=== PATIENT | male | born 1960 | race Caucasian/White ===

== ENCOUNTER 2021-10-04 06:59 | Outpatient (CLI) | payer BC, SELFPAY ==
--- NOTE | ~2021-10-04 | MR_ITS ---
EXAMINATION: MR lumbar spine wo con DATE: 10/04/2021 07:29 INDICATION: Low back pain. Right-sided sciatica. TECHNIQUE: Magnetic resonance imaging (MRI) of the lumbar spine was performed without intravenous con trast. Sequences included sagittal T2-weighted FSE, sagittal T2-weighted FS FSE, sagittal T1-weighted FSE, and axial T2-weighted FSE. COMPARISON: None FINDINGS: There is 3 mm retrolisthesis of L1 on L2. S1 is a transitional segment. Vertebral body heig hts are normal. There is moderately decreased disc height at T12-L1, L1-L2, an L4-L5. The distal spin al cord signal intensity is normal. The conus medullaris is at L1-L2. The following disc levels are s pecifically discussed: L1-L2: The disc is bulging and has an annular fissure. There is mild bilateral facet joint osteoarthr itis. There is moderate right and mild left neural foraminal stenosis. There is mild central canal st enosis. L2-L3: The disc does not extend beyond the endplate margin. There is mild bilateral facet joint osteo arthritis. There is no neural foraminal stenosis. There is no central canal stenosis. L3-L4: The disc is bulging. There is mild bilateral facet joint osteoarthritis. There is mild bilater al neural foraminal stenosis. There is mild central canal stenosis. L4-L5: The disc is bulging. There is mild bilateral facet joint osteoarthritis. There is mild bilater al neural foraminal stenosis. There is mild central canal stenosis. L5-S1: The disc is bulging and has an annular fissure. There is severe bilateral facet joint osteoart hritis. There is mild bilateral neural foraminal stenosis. There is mild central canal stenosis. IMPRESSION: 1. Moderate lumbar spondylosis. Reviewed, dictated and finalized at location A.
== END 2021-10-04 07:00 ==
PROVIDERS: PCP Internal Medicine; Visit Provider Orthopaedic Surgery
DX: M47.26 Other spondylosis with radiculopathy, lumbar region (principal)
CPT/HCPCS: 72148

== ENCOUNTER 2022-07-10 08:59 | Emergency (ER) | payer BC, SELFPAY ==
[2022-07-10 09:22] VITALS: BP 158/77; PULSE 97; RESP 20; TEMP 36.2; O2SAT 97
[2022-07-10 09:26] VITALS: BP 158/77; PULSE 97; RESP 20; TEMP 36.2; O2SAT 97
--- NOTE | 2022-07-10 09:53 | ED.UPPEXIN ---
HPI - Extremity Injury (Upper) General Chief Complaint: Extremity Injury, Upper Stated Complaint: finger injury Time Seen by Provider: 07/10/22 09:53 Source: patient Mode of arrival: ambulatory Limitations: no limitations History of Present Illness HPI narrative: 61-year-old male presented for complaint of redness and mild swelling to the right ring finger after injury 3 days ago. states he struck the finger with a drill bit. Reports small piece of the nail broke and he had some bleeding to the finger. Cleansed with alcohol and hydrogen peroxide. Continues to report tenderness to the fingertip. Denies drainage, streaking, n/v/d/f/c. Related Data Home Medications Medication Instructions Recorded Confirmed famotidine 20 mg tablet 20 mg PO DAILY 07/10/22 07/10/22 fluticasone 500 mcg-salmeterol 50 1 inh inhalation BID 07/10/22 07/10/22 mcg/dose blistr powdr for inhalation (Advair Diskus) tamsulosin 0.4 mg capsule 0.4 mg PO DAILY 07/10/22 07/10/22 Allergies Allergy/AdvReac Type Severity Reaction Status Date / Time Penicillins Allergy Unknown Numbness Verified 07/10/22 09:23 Review of Systems Review of Systems: CONSTITUTIONAL: Denies body aches, fever, chills CARDIOVASCULAR: Denies chest pain, palpitations, or edema. RESPIRATORY: Denies cough or dyspnea. SKIN: per HPI MUSCULOSKELETAL: Denies back pain, joint pain, or myalgia. NEUROLOGIC: Denies headache, numbness, tingling, or weakness. All systems reviewed & are unremarkable except as noted in HPI and below PMFSH Past Medical History Medical History (Updated 07/10/22 @ 10:20 by Melissa Epperson, AMALIA) COPD (chronic obstructive pulmonary disease) Comments At time of signature, I have reviewed and agree with nursing past medical, surgical, social and family history unless otherwise noted. Please see nursing chart for further information. There is no relevant family history pertinent to the presenting complaint Exam Narrative: GENERAL: Well-appearing, well-nourished, and in no acute distress. CHEST: Speaks in full sentences. No respiratory distress. CIRC: Normal and equal peripheral pulses. EXTREMITIES: Right 4th finger with distal/lateral nail damage and surrounding dried blood, approx 2-3mm of nail removed, no subungual hematoma noted; distal phalanx erythematous and tender with mild swelling, no felon or active drainage. Right hand has normal strength and sensation, normal range of motion. Pulse palpable and equal bilaterally, skin warm, dry, pink. Capillary refill less than 3 seconds. SKIN: Warm, dry, no rash. NEURO: Alert and oriented x3. Course Course Emergency Course: Patient is aware of diagnosis, understands and agrees to treatment plan. Anticipatory guidance given. Patient agrees to follow-up as directed and is aware of reasons to seek care at the emergency department. Portions of this record may have been created with voice recognition software Level of Care: Express Care Visit Vital Signs Vital signs: Vital Signs Temperature 97.1 F L 07/10/22 09:22 Pulse Rate 97 07/10/22 09:22 Respiratory Rate 20 07/10/22 09:22 Blood Pressure 158/77 H 07/10/22 09:22 Pulse Oximetry 97 07/10/22 09:22 Oxygen Delivery Room Air 07/10/22 09:22 Temperature 97.1 F L 07/10/22 09:26 Pulse Rate 97 07/10/22 09:26 Respiratory Rate 20 07/10/22 09:26 Blood Pressure 158/77 H 07/10/22 09:26 Pulse Oximetry 97 07/10/22 09:26 Oxygen Delivery Room Air 07/10/22 09:26 Reviewed MDM - Extremity Injury (Upper) MDM Narrative Medical decision making narrative: Attempted wound cleanse, however patient did not tolerate well due to the tenderness at the site. Will send Rx abx. Advised supportive measures and signs/symptoms to go to the ER. Pt is appropriate for outpt treatment and f/u. Differential Diagnosis Differential diagnosis: Likely other (abscess, cellulitis, paronychia, felon, subungual hematoma) Discharge Plan Discha
== END 2022-07-10 10:04 | disposition home or self-care (01) ==
PROVIDERS: Emergency Provider Nurse Practitioner Family; PCP Internal Medicine
DX: L03.113 Cellulitis of right upper limb (principal)
CPT/HCPCS: 99213; G0463